=== PATIENT | male | born 1970 ===

== ENCOUNTER 2021-04-21 06:30 | Emergency (ER) | payer BC ==
[2021-04-21] MEDS ORDERED: ASPIRIN 325 MG TAB PO ONE (06:40)
[2021-04-21 07:48] LABS: Basophils % (Auto) 0.5 % (0.0-1.8); Eosinophils # (Auto) 0.1 K/mm3 (0.0-0.4); Eosinophils % (Auto) 1.8 % (0.0-4.3); Hematocrit 43.1 % (35.5-45.6); Hemoglobin 14.8 gm/dl (11.8-15.2); Lymphocytes # (Auto) 2.7 K/mm3 (1.2-5.4); Mean Corpuscular HGB Conc 34 % (32-34); Mean Corpuscular Volume 91 fl (84-94); Monocytes # (Auto) 0.8 K/mm3 (0.0-0.8); Monocytes % (Auto) 11.8 % (0.0-7.3); Platelet Count 275 K/mm3 (140-440); Red Blood Count 4.72 M/mm3 (3.65-5.03); Red Cell Distribution Width 13.1 % (13.2-15.2)
--- NOTE | 2021-04-21 07:53 | XRay Report ---
CHEST 2 VIEWS INDICATION: Chest pain for 2 days. COMPARISON: None FINDINGS: Support devices: None. Heart: Within normal limits. Lungs/pleura: No acute air space or interstitial disease. No pneumothorax. Additional findings: None. IMPRESSION: Unremarkable chest films. Signer Name: Joseluis Daley Jr, MD Signed: 04/21/2021 7:48 AM Workstation Name: [id number]
[2021-04-21 08:14] LABS: Alanine Aminotransferase 34 units/L (7-56); Albumin 4.7 g/dL (3.9-5); BUN/Creatinine Ratio 13; Blood Urea Nitrogen 12 mg/dL (9-20); Calcium 9.4 mg/dL (8.4-10.2); Hemolysis Index 14
--- NOTE | 2021-04-21 08:51 | Emergency Department Report ---
ED Chest Pain HPI - General Chief Complaint: Chest Pain Stated Complaint: CHEST PAIN PUI?: No Time Seen by Provider: 04/21/21 08:51 Source: patient, RN notes reviewed Mode of arrival: Ambulatory Limitations: No Limitations - History of Present Illness Initial Comments: The patient was evaluated in the emergency department for symptoms described in the history of present illness. He/she was evaluated in the context of the [facility] COVID-19 pandemic, which necessitated consideration that the patient might be at risk for infection with the virus that causes COVID-19. Institutional protocols and algorithms that pertain to the evaluation of patients at risk for COVID-19 are in a state of rapid change based on information released by regulatory bodies including the CDC and federal and state organizations. These policies and algorithms were followed during the patient's care in the emergency department. Please note that these policies, procedures and recommendations changed on a rapid basis. This is a pleasant 50-year-old gentleman, who denies chronic medical history, or medical conditions, who is currently visiting from [facility]. The patient reports that he is currently on a road trip, driving his 17-year-old son to [place], for a baseball tournament. The patient reports that he is right-hand dominant. The patient presents to the ER today with a complaint of left-sided chest discomfort and pressure, since 9:30 PM yesterday. The pressure and discomfort increases with deep inspiration. The patient reports that he is cracked ribs in the past, and he thinks this might be similar to that kind of pain, although he denies trauma. The patient denies vomiting, diaphoresis or exertional shortness of breath. He denies leg pain, leg swelling, loss of taste and smell, denies headache, neck pain and abdominal pain. He took Goody powder recently, but has not taken aspirin formally, he denies a personal/family history of DVT, pulmonary embolism, and ischemic heart disease. His best recollection, he has not had a cardiac risk ratification. He cannot recall having had an EKG in the past. Complaint: chest pain -: Gradual, hour(s) Onset: during rest Pain Location: left chest Pain Radiation: none Severity: mild Quality: aching Consistency: intermittent Improves With: nothing Worsens With: inspiration Context: recent travel re: denies: nausea, vomting, diaphoresis, dyspnea, sense of impending doom Treatments Prior to Arrival: none Aspirin use within the Past 7 Days: (0) No - Related Data Home Medications Medication Instructions Recorded Confirmed Last Taken Cetirizine HCl [Zyrtec 10mg tab] 10 mg PO DAILY 04/21/21 04/21/21 Unknown Previous Rx's Medication Instructions Recorded Last Taken Type Acetaminophen [Non-Aspirin Extra 500 mg PO Q6HR PRN #30 tablet 04/21/21 Unknown Rx Strength] Aspirin [Aspirin BABY CHEW TAB] 81 mg PO QDAY #30 tab.chew 04/21/21 Unknown Rx Ibuprofen [Motrin] 600 mg PO Q8H PRN #30 tablet 04/21/21 Unknown Rx Allergies Allergy/AdvReac Type Severity Reaction Status Date / Time No Known Allergies Allergy Unverified 04/21/21 06:35 Heart Score - HEART Score History: Slightly suspicious EKG: Non-specific Age: 45-65 Risk factors: No known risk factors Troponin: < normal limit HEART Score: 2 - EKG Read Time Time EKG Completed: 06:40 EKG Read Time: 06:44 - Critical Actions Critical Actions: 0-3 pts:0.9-1.7%risk of adverse cardiac event.Candidate for discharge ED Review of Systems ROS: Stated complaint: CHEST PAIN Other details as noted in HPI Constitutional: denies: fever Eyes: denies: vision change ENT: denies: epistaxis Respiratory: denies: cough Cardiovascular: chest pain Gastrointestinal: denies: abdominal pain, nausea, vomiting Musculoskeletal: denies: back pain Neurological: denies: weakness Hematological/Lymphatic: denies: easy bleeding ED Past Medical Hx - Past Medical History Previous Medical History?: No - Surgical History Past Surgical History?: No - Social History Smoking Status: Former Smoker Substance Use Type: Alcohol - Medications Home Medications: Home Medications Medication Instructions Recorded Confirmed Last Taken Type Acetaminophen [Non-Aspirin Extra 500 mg PO Q6HR PRN #30 tablet 04/21/21 Unknown Rx Strength] Aspirin [Aspirin BABY CHEW TAB] 81 mg PO QDAY #30 tab.chew 04/21/21 Unknown Rx Cetirizine HCl [Zyrtec 10mg tab] 10 mg PO DAILY 04/21/21 04/21/21 Unknown History Ibuprofen [Motrin] 600 mg PO Q8H PRN #30 tablet 04/21/21 Unknown Rx ED Physical Exam - General Limitations: No Limitations General appearance: alert, in no apparent distress - Head Head exam: Present: atraumatic, normocephalic - Eye Eye exam: Present: normal appearance, EOMI. Absent: nystagmus - ENT ENT exam: Present: normal exam, normal orophraynx, mucous membranes moist, normal external ear exam - Neck Neck exam: Present: normal inspection, full ROM. Absent: tenderness, meningismus - Respiratory Respiratory exam: Present: normal lung sounds bilaterally. Absent: respiratory distress, wheezes, rales, rhonchi, stridor, chest wall tenderness - Cardiovascular Cardiovascular Exam: Present: regular rate, normal rhythm, normal heart sounds. Absent: bradycardia, tachycardia, irregular rhythm, systolic murmur, diastolic murmur, rubs, gallop - GI/Abdominal GI/Abdominal exam: Present: soft. Absent: distended, tenderness, guarding, rebound, rigid, pulsatile mass - Rectal Rectal exam: Present: deferred - Extremities Exam Extremities exam: Present: normal inspection, full ROM, other (2+ pulses noted in the bilateral upper and lower extremities. There is no palpable cord. negative Homans sign. Muscular compartments are soft. The pelvis is stable.). Absent: pedal edema, calf tenderness - Back Exam Back exam: Present: normal inspection, full ROM. Absent: tenderness, CVA tenderness (R), CVA tenderness (L), paraspinal tenderness, vertebral tenderness - Neurological Exam Neurological exam: Present: alert, oriented X3, normal gait, other (No facial droop. Tongue midline. Extraocular movements intact bilaterally. Facial sensation intact to light touch in V1, V2, V3 distribution bilaterally. 5 and a 5 strength in 4 extremities. Sensation intact to light touch in 4 extremities.). Absent: motor sensory deficit - Psychiatric Psychiatric exam: Present: normal affect, normal mood - Skin Skin exam: Present: warm, dry, intact, normal color. Absent: rash ED Course Vital Signs 04/21/21 04/21/21 04/21/21 06:35 09:04 09:15 Temperature 97.6 F Pulse Rate 69 70 71 Respiratory 16 18 14 Rate Blood Pressure 179/109 155/102 Blood Pressure 170/110 [Left] O2 Sat by Pulse 98 96 98 Oximetry 04/21/21 04/21/21 04/21/21 09:31 09:45 11:15 Temperature Pulse Rate 65 75 99 H Respiratory 15 12 16 Rate Blood Pressure 160/98 160/104 157/97 Blood Pressure [Left] O2 Sat by Pulse 98 98 95 Oximetry - Reevaluation(s) Reevaluation #1: 04/21/21 09:41 Differential diagnosis, including but not limited to: GERD, gastritis, hiatal hernia, pneumonia, pleurisy, pulmonary embolism, acute coronary syndrome Assessment and plan: 50-year-old gentleman, who is not currently tachycardic, tachypneic or hypoxic, with pleuritic pain, in the context of recent road trip from [place] to [place], with abnormal EKG without prior for comparison. The patient has no personal or family history of DVT, pulmonary embolism, or ischemic heart disease. He has had 1 - troponin in the context of approximately 9 hours of symptoms. He has not eaten since 4:00 this morning. Patient states that he really would like to get to go to [place], he does not believe he will be able to follow-up with an outpatient primary care doctor or etl programmer within the next 3 days. He also states he really does not want to be admitted to the hospital, unless absolutely necessary. He is amenable to supportive care, diagnostic work-up here in the emergency room, and we also discussed obtaining a treadmill nuclear stress test, for the purposes of cardiac risk ratification. The patient does understand that this will likely lead to a prolonged length of stay while here in the emergency room, but it is his articulated preference. Therefore, repeat troponin, D-dimer, EKG ordered and pending. Contacted cardiology physician railway yard assistant on-call, Ingrid Orlando, discussed the patient's history, physical, laboratory studies and imaging studies, and we will order a cardiac treadmill stress test, to be interpreted by the [facility] heart cardiology group. Reassess after data points and treadmill stress test. 04/21/21 11:04 D-dimer negative. Troponin negative x2. Patient feels improved. Treadmill stress test is interpreted as negative for acute findings by Dr. Johnson. Patient feels improved. He reports readiness for discharge. Explained need to follow-up with outpatient primary care or cardiology. Patient has also taken a picture of his EKG for his old medical records. Elevated blood pressure reviewed and appreciated, please reference the [employer] clinical policy on asymptomatic elevated blood pressure/hypertension. Repeat EKG does not demonstrate significant pathology or abnormality at this time. DANIELITO score - Danielito Score Age > 65: (0) No Aspirin use within the Past 7 Days: (0) No 3 or more CAD Risk Factors: (0) No 2 or more Angina events in past 24 hrs: (0) No Known CAD with more than 50% Stenosis: (0) No Elevated Cardiac Markers: (0) No ST Deviation Greater than 0.5mm: (0) No DANIELITO Score: 0 ED Medical Decision Making - Lab Data Result diagrams: 04/21/21 07:10 04/21/21 07:10 Vital Signs 04/21/21 04/21/21 06:35 09:04 Temperature 97.6 F Pulse Rate 69 70 Respiratory 16 18 Rate Blood Pressure 179/109 Blood Pressure 170/110 [Left] O2 Sat by Pulse 98 96 Oximetry Lab Results 04/21/21 04/21/21 Range/Units 07:10 07:10 WBC 6.9 (4.5-11.0) K/mm3 RBC 4.72 (3.65-5.03) M/mm3 Hgb 14.8 (11.8-15.2) gm/dl Hct 43.1 (35.5-45.6) % MCV 91 (84-94) fl MCH 31 (28-32) pg MCHC 34 (32-34) % RDW 13.1 L (13.2-15.2) % Plt Count 275 (140-440) K/mm3 Lymph % (Auto) 39.0 H (13.4-35.0) % Mcdowell % (Auto) 11.8 H (0.0-7.3) % Eos % (Auto) 1.8 (0.0-4.3) % Baso % (Auto) 0.5 (0.0-1.8) % Lymph # (Auto) 2.7 (1.2-5.4) K/mm3 Mcdowell # (Auto) 0.8 (0.0-0.8) K/mm3 Eos # (Auto) 0.1 (0.0-0.4) K/mm3 Baso # (Auto) 0.0 (0.0-0.1) K/mm3 Seg Neutrophils % 46.9 (40.0-70.0) % Seg Neutrophils # 3.2 (1.8-7.7) K/mm3 Sodium 141 (137-145) mmol/L Potassium 3.4 L (3.6-5.0) mmol/L Chloride 101.9 (98-107) mmol/L Carbon Dioxide 27 (22-30) mmol/L Anion Gap 16 mmol/L BUN 12 (9-20) mg/dL Creatinine 0.9 (0.8-1.3) mg/dL Estimated GFR > 60 ml/min BUN/Creatinine Ratio 13 % Glucose 98 (75-100) mg/dL Calcium 9.4 (8.4-10.2) mg/dL Total Bilirubin 0.30 (0.1-1.2) mg/dL AST 23 (5-40) units/L ALT 34 (7-56) units/L Alkaline Phosphatase 72 (35-129) units/L Troponin T < 0.010 (0.00-0.029) ng/mL Total Protein 7.4 (6.3-8.2) g/dL Albumin 4.7 (3.9-5) g/dL Albumin/Globulin Ratio 1.7 % - EKG Data -: EKG Interpreted by Oh EKG shows normal: sinus rhythm Rate: normal - EKG Data 04/21/21 09:41 EKG interpreted at 06: 4 0 Sinus rhythm, normal P wave axis, borderline leftward axis deviation, borderline left anterior fascicular block, incomplete right bundle branch block, and left ventricular hypertrophy. Intervals otherwise within normal limits. This is an abnormal EKG. This is not a STEMI. There is no prior for comparison. 04/21/21 11:05 EKG #2, interpreted at 11: 02 Sinus rhythm, 97 bpm, borderline rightward axis deviation, high left ventricular voltage/left ventricular hypertrophy, QTC prolonged. Not a STEMI. - Radiology Data Radiology results: pending, report reviewed, image reviewed [facility] [address] [place] [address] XRay Report Signed Patient: CHARLINE CULLEN MR#: [id number] : 1970 Acct:[id number] Age/Sex: 50 / M ADM Date: 04/21/21 Loc: ED Attending Dr: Ordering Physician: ED DOC, Date of Service: 04/21/21 Procedure(s): XR chest routine 2V Accession Number(s): [id number] cc: ED DOC, Fluoro Time In Minutes: CHEST 2 VIEWS INDICATION: Chest pain for 2 days. COMPARISON: None FINDINGS: Support devices: None. Heart: Within normal limits. Lungs/pleura: No acute air space or interstitial disease. No pneumothorax. Additional findings: None. IMPRESSION: Unremarkable chest films. Signer Name: Joseluis Daley Jr, MD Signed: 04/21/2021 7:48 AM Workstation Name: [id number] Transcribed By: TTR Dictated By: JOSELUIS DALEY JR, MD Electronically Authenticated By: JOSELUIS DALEY JR, MD Signed Date/Time: 04/21/21747 DD/ 7 Critical care attestation.: If time is entered above; I have spent that time in minutes in the direct care of this critically ill patient, excluding procedure time. ED Disposition Clinical Impression: Pleuritic chest pain Disposition: TO HOME OR SELFCARE Is pt being admited?: No Does the pt Need Aspirin: No Condition: Stable Instructions: Nonspecific Chest Pain, Adult, Pleurodynia Additional Instructions: Take the pain medications as needed and directed. Follow-up with a primary care doctor or etl programmer within the next 5 to 7 days. In the emergency room, the patient had 2 - troponins, negative D-dimer, and a treadmill exercise stress test which was not suggestive of ischemic findings. The patient had a nonspecific EKG, which he has taken a picture of for his own records, and he should follow-up with the primary care doctor or etl programmer for this within the next 5 to 7 days. Please return to the emergency room right away with new pain, worsened pain, migration of pain, projectile vomiting, change in mental status, confusion, inability to tolerate liquid feeds, new, worsened or different symptoms not present on the initial emergency room evaluation. For the patient's convenience, a number of local cardiology specialists have been listed in this paperwork that he may follow-up with, if he elects to do so. Prescriptions: Aspirin [Aspirin BABY CHEW TAB] 81 mg PO QDAY #30 tab.chew Ibuprofen [Motrin] 600 mg PO Q8H PRN #30 tablet PRN Reason: Pain Acetaminophen [Non-Aspirin Extra Strength] 500 mg PO Q6HR PRN #30 tablet PRN Reason: Pain , Severe (7-10) Referrals: SHANE FRIEND MD [Staff Physician] - 7-10 days TANGELA RAINES MD [Staff Physician] - 7-10 days [facility] [Provider Group] - 7-10 days
[2021-04-21] MEDS ORDERED: ACETAMINOPHEN 325 MG TAB PO ONE (09:40)
[2021-04-21] MEDS ORDERED: POTASSIUM CHLORIDE ER 20 MEQ TAB PO ONE (09:40)
[2021-04-21] MEDS ORDERED: PANTOPRAZOLE 40 MG TAB PO ONE (09:40)
--- NOTE | 2021-04-21 10:40 | Electrocardiograph Report ---
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
[2021-04-21 11:32] VITALS: BP 157/97
--- NOTE | 2021-04-21 22:18 | Treadmill Report ---
DATE OF SERVICE: 04/21/2021 TREADMILL STRESS TEST REFERRING PHYSICIAN: Dr. Rowe, in the emergency room. PROTOCOL: The patient was brought to the stress lab in a postabsorptive state from the emergency room. A standard Hollis protocol treadmill was performed. Baseline blood pressure is 137/80. Peak blood pressure is 180/100. The patient achieved 10.1 METs on a standard Hollis protocol for 10 minutes and 1 second. There is no evidence of diagnostic ST changes, arrhythmias, or chest pain during stress or recovery. CONCLUSION: 1. Normal exercise stress test without evidence of diagnostic ST changes, arrhythmias, or chest pain during stress or recovery. 2. Average exercise tolerance. 3. Appropriate heart rate/blood pressure response in recovery. TID: [id number] RECEIPT: [id number] FRANCISCO/EDUARD
--- NOTE | 2021-04-22 09:48 | Treadmill Report ---
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
--- NOTE | 2021-05-01 10:28 | Electrocardiograph Report ---
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
== END 2021-04-21 12:00 | disposition home or self-care (01) ==
LOC: ED 06:30
DX: R07.89 Other chest pain (principal); Z79.1 Long term (current) use of non-steroidal anti-inflammatories (NSAID); Z79.899 Other long term (current) drug therapy; Z87.891 Personal history of nicotine dependence
CPT/HCPCS: 36415; 71046; 80053; 82550; 83735; 84484; 85025; 85379; 93005; 93017